=== PATIENT | male | born 1955 | race Caucasian/White ===

== ENCOUNTER 2019-09-19 18:33 | Emergency (ER) | payer BC ==
[2019-09-19 18:53] VITALS: BP 127/71
[2019-09-19] MEDS ORDERED: Lidocaine 1% MPF ** 5 ML VIAL INJ ONE (19:06)
--- NOTE | 2019-09-19 19:06 | UC ---
Laceration HPI - HPI Summary HPI Summary: 63-year-old male presents with complaints of a laceration to his left middle finger. States that approximately 6:00 PM this evening he was moving a metal and glass fireplace screen and he accidentally dropped it onto his finger. Reports bleeding was controlled with direct pressure prior to arrival. States he has full range of motion to the finger. States tetanus is up-to-date. Denies any any numbness or tingling. - History Of Current Complaint Chief Complaint: UCUpperExtremity Stated Complaint: LEFT HAND MIDDLE FINGER Time Seen by Provider: 09/19/19 18:50 Hx Obtained From: Patient Pain Intensity: 4 - Allergies/Home Medications Allergies/Adverse Reactions: Allergies Allergy/AdvReac Type Severity Reaction Status Date / Time No Known Allergies Allergy Verified 09/19/19 18:53 Home Medications: Home Medications Calcium Carbonate [Calcium] 500 mg PO BID 09/19/19 [History Confirmed 09/19/19] Diazepam TAB(*) [Valium TAB(*)] 10 mg PO Q8H PRN 09/19/19 [History Confirmed ] Mesalamine CAP(NF) [Pentasa(NF)] 500 mg PO TID 09/19/19 [History Confirmed 09/19] Venlafaxine CAP (NF) [Effexor CAP (NF)] 150 mg PO QAM 09/19/19 [History Confirmed 09/19/19] Zolpidem TAB* [Ambien TAB*] 10 mg PO BEDTIME PRN 09/19/19 [History Confirmed ] PMH/Surg Hx/FS Hx/Imm Hx GI/ History: Other - Collagenous colitis Psychological History: Depression - Surgical History Surgical History: Yes Surgery Procedure, Year, and Place: b/l knees - Family History Known Family History: Positive: Non-Contributory - Social History Occupation: Retired Lives: With Family Alcohol Use: None Substance Use Type: None Smoking Status (MU): Former Smoker - Immunization History Most Recent Tetanus Shot: 2014 Review of Systems All Other Systems Reviewed And Are Negative: Yes Constitutional: Positive: Negative Skin: Positive: Other - See HPI Respiratory: Positive: Negative Cardiovascular: Positive: Negative Gastrointestinal: Positive: Negative Genitourinary: Positive: Negative Motor: Negative: Weakness Neurovascular: Negative: Decreased Sensation Musculoskeletal: Negative: Decreased ROM Neurological: Positive: Negative Physical Exam - Summary Physical Exam Summary: GENERAL APPEARANCE: Well developed, well nourished, alert and cooperative, and appears to be in no acute distress. CARDIAC: Normal S1 and S2. No S3, S4 or murmurs. Rhythm is regular. There is no peripheral edema, cyanosis or pallor. Extremities are warm and well perfused. Capillary refill is less than 2 seconds. Peripheral pulses intact. LUNGS: Clear to auscultation without rales, rhonchi, wheezing or diminished breath sounds. ABDOMEN: Positive bowel sounds. Soft, nondistended, nontender. No guarding or rebound. No masses or hepatosplenomegally. MUSKULOSKELETAL: Normal muscular development. Normal gait. EXTREMITIES: Linear laceration immediately distal to the DIP joint of the left middle finger with bleeding controlled. Full ROM. No gross deformity. Circulation and sensation intact. SKIN: Skin normal color, texture and turgor. Triage Information Reviewed: Yes Vital Signs: Initial Vital Signs Temp 98.7 F 09/19/19 18:45 Pulse 74 09/19/19 18:45 Resp 24 09/19/19 18:45 BP 127/71 09/19/19 18:45 Pulse Ox 99 09/19/19 18:45 Vital Signs Reviewed: Yes Images Hands: 1 - Linear laceration with bleeding controlled Procedures - Procedure Summary Procedure Summary: Procedure note: Laceration repair left middle finger with digital block. Informed consent was obtained before procedure started and the appropriate timeout was taken. X-ray of the finger was reviewed. The area was prepped and draped in the usual fashion. A digital block was performed using 4 ml of lidocaine 1% without epinephrine and good anesthesia was achieved. The wound was thoroughly explored under a bloodless field. No foreign body or tendon laceration noted. The wound was copiously irrigated with 500 ml of normal saline. A small amount of adipose tissue was sharply excised from the wound. The wound margins were brought into good alignment and 7 interrupted sutures were placed using 5-0 Ethilon. Total length of wound after repair was 1.5 cm. Estimated blood loss was minimal. A dressing was applied by the RN and patient was placed in a finger splint. Anticipatory guidance, as well as standard post- procedure care was discussed with patient. Return precautions are given. The patient tolerated the procedure well without complications. Patient is to follow up in 10-14 days for suture removal and evaluation of the laceration. Diagnostics - Radiology No standard instances Radiology Interpretation Completed By: ED Physician Summary of Radiographic Findings: Possible non-displaced fracture at the base of the distal phalanx of the left middle finger that extends into the joint space seen only on the lateral view. Laceration Course/Dx - Course/Dx Course Of Treatment: 63-year-old male presents with complaints of a laceration to his left middle finger. States that approximately 6:00 PM this evening he was moving a metal and glass fireplace screen and he accidentally dropped it onto his finger. Reports bleeding was controlled with direct pressure prior to arrival. States he has full range of motion to the finger. States tetanus is up-to-date. Denies any any numbness or tingling. Afebrile. Vital signs stable. Patient had a linear laceration immediately distal to the DIP joint of the left middle finger with bleeding controlled, full ROM to the finger, no gross deformity with circulation and sensation intact. Remainder of exam was unremarkable. Preliminary reading of the x-ray is for a possible open nondisplaced fracture to the base of the distal phalanx which was seen only on the lateral view. Reviewed findings with the patient. Informed consent and appropriate time out was taken. A digital block was performed and good anesthesia was achieved. The wound was then thoroughly explored and no foreign body or tendon laceration was noted. The wound was then copiously irrigated with 500 cc of normal saline. A small amount of adipose tissue was sharply excised from the wound and the wound was then closed using a total of 7 interrupted sutures using 5-0 Ethilon. A dressing was applied by the RN and the patient was placed in a finger splint. I discussed the case with Dr. Amado, orthopedic surgery, who agrees with the treatment plan and recommends starting the patient on prophylactic Augmentin 875 mg twice a day 5 days. The patient is to first thing Saturday morning for a follow-up appointment office. Wound care, anticipatory guidance, and warning symptoms requiring immediate medical attention were reviewed with the patient. Verbalizes understanding and agrees with plan of care. - Differential Dx - Laceration/Wound Differental Diagnoses: Foreign Body, Joint Space Violation, Laceration, Tendon Laceration - Diagnosis Provider Diagnosis: Open fracture of distal phalanx of left hand Discharge ED - Sign-Out/Discharge Documenting (check all that apply): Patient Departure All imaging exams completed and their final reports reviewed: No - Discharge Plan Condition: Stable Disposition: HOME Prescriptions: Amoxicillin/Clavulanate TAB* [Augmentin TAB 875*] 875 mg PO BID #9 tab Patient Education Materials: Finger Fracture (ED), Finger Laceration (ED) Referrals: Edwardo Bennett DO [Primary Care Provider] - Ortiz Bravo MD [Medical Doctor] - 2 Days (Call Saturday for an appointment.) Additional Instructions: The x-ray performed in the clinic today showed evidence of a possible open fracture at the base of the distal phalanx of the left middle finger. The radiologist will review the x-ray in the morning and we will notify you if there is any change in your plan of care. Wear the splint that was applied in the clinic until you follow up with orthopedic surgery. You may remove to shower but should wear at all other times. Rest the hand as much as possible. Apply ice to the affected area for 15-20 minutes at least 4 times a day to help with the pain and swelling. Elevate the hand to help reduce swelling. Leave the dressing that was applied in the clinic in place for the next 24 hours. Be sure to keep it clean and dry. After 24 hours, you may remove the dressing and shower and wash hands as normal. Do not submerge the hand under water to prevent infection. Clean the wound with a mild soap and water at least once a day. Apply some antibiotic ointment and cover with a bandage. This should be changed at least once a day or any time the dressing becomes wet or soiled. Use acetaminophen (Tylenol), ibuprofen (Advil, Motrin), or naproxen (Aleve) according to directions as needed for pain. Sutures will need to be removed in 10-14 days. You may return here or with your primary care provider to have this done. Watch for signs of infection including fever greater than 100.5 F, severe pain not managed with pain medication, redness that spreads, finger, or pus draining from the wound. Seek immediate medical attention should any of these occur. - Billing Disposition and Condition Condition: STABLE Disposition: Home
[2019-09-19] MEDS ORDERED: Amoxicillin/Clavulanate TAB* 875 MG PO ONE (19:57)
--- NOTE | 2019-09-20 09:09 | UC ---
- Progress Note Progress Note: + confirmed open frx distal phalanx of left middle finger. Was placed on Augmentin with instructions to f/u with Ortho 09/21/19. No change in treatment plan. Deicer Repairer Electric: Dilan Hughes C, ([id number]) Superintendent Commissary: YARELI ( SOHANANCE) Report Date: 09/19/2019 18:55:00 Report Status: Final ====== Start of Report Content Patient Name: TE AHUMADA Medical Record#: [id number] Ordering Physician: Maurice Schultz NP Acct.#: [id number] : Age: 63 Sex: M Location: [facility] Exam Date: 09/19/191854 ADM Status: [facility] ER Order Information: FINGER LEFT MIDDLE Accession Number: [id number] CPT: 65181 Indication: Laceration to LEFT middle finger. Crush component to injury. Comparison: No relevant prior exams available on the [facility] [place] for comparison. Technique: 3 views LEFT third finger. REPORT AND IMPRESSION : #. Soft tissue swelling greatest along the radial and volar aspect distally. Suggestion laceration at the radial volar aspect at the level of the DIP joint. No conspicuous foreign body evident. #. Suggestion of mild impaction fracture at the volar base of the distal phalanx corresponding with the region of injury. #. Normal articular alignment. R0 Preliminary Imaging Read R0 <Electronically signed by Dilan Hughes MD in OV> 09/20/19828 Dictated By: Dilan Hughes MD Dictated Date/Time: 09/20/19825 Transcribed Date/Time: 09/20/19825 Copy to: CC:Maurice Schultz LEG ASSEMBLER; Edwardo Bennett DO; Harsh Kong MD Imaging - [facility] Imaging - [facility] Imaging - [facility] [id number] [place] [id number] [place] [id number] ph [phone]) ph [phone]) ph ([phone]) End of Report Content ========= Course/Dx - Diagnoses Provider Diagnoses: Open fracture of distal phalanx of left hand Discharge ED - Sign-Out/Discharge Documenting (check all that apply): Post-Discharge Follow Up All imaging exams completed and their final reports reviewed: Yes - Discharge Plan Condition: Stable Disposition: HOME Prescriptions: Amoxicillin/Clavulanate TAB* [Augmentin TAB 875*] 875 mg PO BID #9 tab Patient Education Materials: Finger Fracture (ED), Finger Laceration (ED) Referrals: Ortiz Bravo MD [Medical Doctor] - 2 Days (Call Saturday morning for an appointment.) Edwardo Bennett DO [Primary Care Provider] - Additional Instructions: The x-ray performed in the clinic today showed evidence of a possible open fracture at the base of the distal phalanx of the left middle finger. The radiologist will review the x-ray in the morning and we will notify you if there is any change in your plan of care. Wear the splint that was applied in the clinic until you follow up with orthopedic surgery. You may remove to shower but should wear at all other times. Rest the hand as much as possible. Apply ice to the affected area for 15-20 minutes at least 4 times a day to help with the pain and swelling. Elevate the hand to help reduce swelling. Leave the dressing that was applied in the clinic in place for the next 24 hours. Be sure to keep it clean and dry. After 24 hours, you may remove the dressing and shower and wash hands as normal. Do not submerge the hand under water to prevent infection. Clean the wound with a mild soap and water at least once a day. Apply some antibiotic ointment and cover with a bandage. This should be changed at least once a day or any time the dressing becomes wet or soiled. Use acetaminophen (Tylenol), ibuprofen (Advil, Motrin), or naproxen (Aleve) according to directions as needed for pain. Sutures will need to be removed in 10-14 days. You may return here or with your primary care provider to have this done. Watch for signs of infection including fever greater than 100.5 F, severe pain not managed with pain medication, redness that spreads, finger, or pus draining from the wound. Seek immediate medical attention should any of these occur. - Billing Disposition and Condition Condition: STABLE Disposition: Home
== END 2019-09-19 20:13 | disposition home or self-care (01) ==
LOC: UCCORT 18:33
DX: S62.663A Nondisplaced fracture of distal phalanx of left middle finger, initial encounter for closed fracture (principal); S61.213A Laceration without foreign body of left middle finger without damage to nail, initial encounter; F32.9 Major depressive disorder, single episode, unspecified; Z79.899 Other long term (current) drug therapy; Z87.891 Personal history of nicotine dependence; W20.8XXA Other cause of strike by thrown, projected or falling object, initial encounter; Y93.89 Activity, other specified; Y92.9 Unspecified place or not applicable
CPT/HCPCS: 12001; 73140; 99202; A9270-GY; G0463